=== PATIENT | female | born 1990 | race Caucasian/White ===

== ENCOUNTER → 2016-08-10 | Outpatient (CLI) | payer SELFPAY ==
[2016-08-10 20:31] LABS: Appearance,CSF Clear
[2016-08-11 14:15] LABS: Immunoglobulin G 955 mg/dL (700 - 1600)
[2016-08-13 15:57] LABS: Lyme Specimen Source Not Provided
== END | disposition home or self-care (01) ==
LOC: LABWHC1 12:13
PROVIDERS: ATTEND Psychiatry & Neurology Pain Medicine
DX: H53.8 Other visual disturbances (principal); R42 Dizziness and giddiness; R51 Headache; H40.059 Ocular hypertension, unspecified eye
CPT/HCPCS: 36415; 82040; 82042; 82784; 83873; 83916; 84157; 87476; 88108; 89050

== ENCOUNTER → 2018-07-11 | Outpatient (CLI) | payer MEDICAID ==
--- NOTE | 2018-07-11 11:38 | US ---
EXAMINATION TYPE: US abdomen complete DATE OF EXAM: 07/11/2018 COMPARISON: None CLINICAL HISTORY: 28 year-old female with R10.9 Abdominal Pain. TECHNIQUE: Multiple sonographic images of the abdomen are obtained. FINDINGS: EXAM MEASUREMENTS: Liver Length: 15.1 cm Gallbladder Wall: 0.2 cm CBD: 0.4 cm Spleen: 12.6 cm Right Kidney: 10.0 x 5.2 x 6.0 cm Left Kidney: 11.5 x 7.1 x 6.4 cm Pancreas: The pancreatic body and some of the pancreatic tail are visualized. Remainder suboptimally visualized secondary to shadowing from bowel gas. Liver: Overall homogeneous appearance without focal lesion Gallbladder: No stones seen Evidence for sonographic Purcell's sign: no CBD: wnl Spleen: wnl Right Kidney: No hydronephrosis. Left Kidney: Questionable fullness to the pelvicalyceal system is not confirmed on the transverse brian ges. Upper IVC: wnl Abd Aorta: wnl IMPRESSION: 1. Questionable fullness to the left-sided pelvicalyceal system is not confirmed on the transverse im ages. Short interval follow-up can be performed as a precautionary measure. 2. Otherwise, no specific abnormality identified in the abdomen.
== END ==
LOC: RADUSWWP 07:09
PROVIDERS: ATTEND Family Medicine
DX: R10.9 Unspecified abdominal pain (principal)
CPT/HCPCS: 76700

== ENCOUNTER → 2018-08-02 | Outpatient (CLI) | payer MEDICAID ==
--- NOTE | 2018-08-03 07:03 | CT ---
EXAMINATION TYPE: CT abdomen wo/w con DATE OF EXAM: 08/02/2018 COMPARISON: Correlation ultrasound 07/11/2018 HISTORY: 28-year-old female Left flank pain TECHNIQUE: Contiguous axial scanning of the abdomen before and after administration of 100 ml Isovue 300 IV contrast. Delayed images through the kidneys and coronal/sagittal reconstructions performed. CT DLP: 1404.3 mGycm Automated exposure control for dose reduction was used. FINDINGS: Heart normal size without pericardial effusion. Lung bases clear without pleural effusion. Liver borderline to mildly enlarged at 18.1 cm. No focal liver lesion or biliary ductal dilatation. P ortal venous system is patent. Gallbladder, adrenal glands, spleen, and pancreas appear within normal limits. No nephrolithiasis or hydronephrosis. No suspicious renal lesion. Symmetric uptake and excretion of c ontrast from both kidneys. Scattered numerous prominent mesenteric lymph nodes measure up to 5 mm, for example, refer to coronal image 45. No dilated small bowel, free fluid, or free air. Mild to moderate stool in the right side of the abdomen. No pericolonic inflammatory change. Normal a ppendix. The pelvis is not imaged. An IUD is partially visualized. Bones: No osseous destructive process. IMPRESSION: 1. BORDERLINE LIVER SIZE (18.1 CM). 2. SCATTERED NUMEROUS BORDERLINE SIZED LYMPH NODES MEASURING UP TO 5 MM THROUGHOUT THE MESENTERY. FIN DINGS LIKELY REACTIVE/POST INFLAMMATORY, POSSIBLE MESENTERIC ADENITIS. CLINICALLY CORRELATE. 3. NO NEPHROLITHIASIS OR HYDRONEPHROSIS. NORMAL ENHANCEMENT OF THE KIDNEYS.
== END | disposition home or self-care (01) ==
LOC: RADCTMAIN 16:13
PROVIDERS: ATTEND Family Medicine
DX: N28.89 Other specified disorders of kidney and ureter (principal)
CPT/HCPCS: 74170

== ENCOUNTER → 2020-03-18 | Outpatient (CLI) | payer MEDICAID | END | disposition home or self-care (01) | LOC: LABWHC1 10:24 | PROVIDERS: ATTEND Pediatrics Pediatric Infectious Diseases | DX: Z03.818 Encounter for observation for suspected exposure to other biological agents ruled out (principal) | CPT/HCPCS: U0003; C9803 ==